=== PATIENT | female | born 1985 | race Caucasian/White ===

== ENCOUNTER → 2019-02-01 07:04 | Outpatient (CLI) | payer OTHER, SELFPAY ==
[2019-02-01 08:49] LABS: Glucose Fasting 80 mg/dL (70-100)
[2019-02-01 09:20] LABS: Ferritin 9.3 ng/mL (6.27-137)
[2019-02-01 09:35] LABS: Glucose 1 Hour 96 mg/dL (70-170)
[2019-02-01 09:40] LABS: Glucose Tol Interpretation INTERPRETATION
[2019-02-01 10:19] LABS: Glucose 2 Hour 98 mg/dL (70-140)
[2019-02-01 17:58] LABS: Mean Corpuscular HGB Conc 34.7 % (30-36); Mean Corpuscular Hemoglobin 33.6 PG (26-34); Mean Corpuscular Volume 96.9 fL (80-100); Platelet Count 173 X10^3/uL (150-400); Red Blood Cell Count 3.96 X10^6/uL (4.0-5.2); Red Cell Distribution Width 12.8 % (11.6-14.8); White Blood Cell Count 8.1 X10^3/uL (4.5-11.0)
[2019-02-01 18:05] LABS: Hematocrit 37.9 % (36-46); Hemoglobin 13.4 g/dL (12.0-16.0)
== END ==
PROVIDERS: Visit Provider Nurse Practitioner Obstetrics & Gynecology
DX: Z34.82 Encounter for supervision of other normal pregnancy, second trimester (principal); Z13.1 Encounter for screening for diabetes mellitus
CPT/HCPCS: 36415; 82728; 82951; 82952; 85027

== ENCOUNTER → 2019-04-12 13:02 | Outpatient (ROUT) | payer OTHER, SELFPAY | PROVIDERS: Visit Provider Nurse Practitioner Obstetrics & Gynecology | DX: Z11.2 Encounter for screening for other bacterial diseases (principal); Z3A.36 36 weeks gestation of pregnancy | CPT/HCPCS: 87081 ==

== ENCOUNTER 2019-05-15 07:25 | Inpatient (IN) | payer OTHER, SELFPAY ==
--- NOTE | 2019-05-15 07:33 | PM.OBHP.1 ---
OB HPI Date/Time Date of admission: 05/15/19 Date Patient Seen: 05/15/19 Time Patient Seen: 07:50 History of Present Condition Chief complaint: OBS : 3 Para: 1 Estimated Date of Delivery: 05/06/19 Estimated Gestational Age (weeks): 41.2 Narrative: Silvana Carroll is a 33 year old female @ 41wks 2 days here for evaluation of labor. Awoke w/ contractions @ 0400 that have progressed in frequency and intensity, now breathing through stong contractions [id number]. +FM. No VB or LOF. Routine, uncomplicated PN care w/ CNM. Desires low intervention . , [place], and process maintenance technicianWilliam, are present and supportive. Comments: Had routine post dates testing 05/13/19 @ 41 wks w/ RNST and DEXTER-7.72cm, vertex. History of Present care: good care Dating criteria: LMP confirmed by 1st trimester US Ultrasounds: normal mid trimester US Obstetrical complications: none Medical complications: none Preadmission Labs Blood type: B (+) positive -: Antibody screen: negative, GBS status: negative, HBsAG: negative, HIV: negative and RPR/VDLR: negative -: Rubella: immune HCT: 37.9 HCAB: negative PAP: Normal Cell-free DNA: negative/female 1 hr GTT: 96 3 hr GTT: 2 hr (98) Fasting blood glucose: 80 Prior (ies) History: 07/25/16- term NSVB @ 41.3, female 8#7oz, 12 hour second stage w/ tranfer to [place], epidural, 2nd degree Evaluation Evaluation Baseline heart rate: 130 Variability: Moderate (11-25) monitor accelerations: Present monitor decelerations: Absent Contraction Frequency (minutes): 4 Uterine Contraction Intensity: Strong/Firm Category of Tracing: I Cervical dilation (cm): 4 Cervical effacement (%): 90 station: -3 [facility] Social History (Updated 05/15/19 @ 08:28 by Dimple Del Angel CNM) marital status: number of children: 1 household members: spouse and children lives independently: Yes caregiver/support person: No housing: house education level: college occupational status: employed current occupational exposures/hazards: No special melita needs: No Smoking Status: Never smoker second hand exposure: No substance use type: does not use Meds Home Medications and Allergies Home Medications Medication Instructions Recorded Confirmed Type 05/15/19 History Allergies Allergy/AdvReac Type Severity Reaction Status Date / Time No Known Drug Allergies Allergy Verified 05/15/19 08:30 Review of Systems Review of Systems ROS: Yes All systems reviewed with the patient and are negative except as otherwise documented Exam Vital Signs (past 8 hours): BP 129/83, HR78, T99.3F Temporal Chest Chest: normal inspection of the chest Resp Effort & Inspection: normal respiratory effort Auscultation: clear to auscultation bilaterally Cardio Rate: regular rate Rhythm: regular rhythm Heart Sounds: S1 normal and S2 normal Uterus Location (Fundal Height): 39 Presentation: vertex Estimated Weight (lbs): 8 Assessment and Plan Assessment and Plan Assessment and Plan narrative: Admit, routine orders w/ SL IV, CBC & T&S. Labor support PRN. Reassess in 4 hours or sooner, PRN. OB back-up/Mcallister notified of pt admit status and POC. Time Spent with Patient Total time spent with greater than 50% in coordination of care (as documented) at patient's floor/unit and/or counseling patient:: 25 - 35 minutes
[2019-05-15 09:00] LABS: Add Manual Diff / Slide Review NO; Basophils Absolute Auto 0 /uL (0-100); Basophils Percent Auto 0.2 % (0-2); Eosinophils Absolute Auto 100 /uL (0-450); Eosinophils Percent Auto 0.7 % (2-4); Hematocrit 42.7 % (36-46); Hemoglobin 14.7 g/dL (12.0-16.0); Lymphocytes Absolute Auto 1700 /uL (1100-4500); Lymphocytes Percent Auto 12.7 % (25-40); Mean Corpuscular HGB Conc 34.5 % (30-36); Mean Corpuscular Hemoglobin 32.9 PG (26-34); Mean Corpuscular Volume 95.5 fL (80-100); Monocytes Absolute Auto 900 /uL (0-900); Monocytes Percent Auto 6.6 % (3-14); Neutrophils Absolute Auto 10700 /uL (1500-7000); Neutrophils Percent Auto 79.8 % (50-75); Platelet Count 172 X10^3/uL (150-400); Red Blood Cell Count 4.47 X10^6/uL (4.0-5.2); Red Cell Distribution Width 12.8 % (11.6-14.8); White Blood Cell Count 13.4 X10^3/uL (4.5-11.0)
[2019-05-15 11:31] VITALS: BP 108/56
[2019-05-15] MEDS: LACTATED RINGERS 1,000 ML 100 ML IV ×2 (14:15→18:25)
--- NOTE | 2019-05-15 14:48 | PM.OBPNLAB ---
Date/Time Date Patient Seen: 05/15/19 Time Patient Seen: 14:40 Pain Control Pain control: other (Nitrous oxide initiated 20 minutes ago, awaiting epidural. Anesthesia notified. ) Comments: VS: BP 125/81, HR 71, T 36.7C Temporal Pelvic Exam Dilation (cm): 9 Effacement (%): 100 station: 0 Amniotic membrane status: Leaking Comments: SROM, clear fluid @ 1135 Contractions Date/Time contractions began: 0600 Pitocin rate (mU/min): 0 Contraction frequency (min): 4 Contraction duration (min): 60 Contraction pattern: Regular Contraction intensity: Strong/Firm Status status: Category l Heart Rate Baseline: 125 Comments: Intermittent auscultation remains reassuring Assessment and Plan Assessment: active labor Comments: Pt has had a persistent anterior lip of cervix x 3 hours without significant change. She is tired and the AL is beginning to swell. Will begin pitocin augmentation after patient is comfortable w/ epidural.
[2019-05-15] MEDS: OXYTOCIN PREMIX 30 UNIT/500 ML PLAST..BAG IV (16:43)
[2019-05-15] MEDS: miSOPROStoL 200 MCG TABLET 400 MCG PO (19:10)
--- NOTE | 2019-05-15 19:26 | PM.OBPRVD ---
 Events: Labor Augmentation and Meconium Stained Fluid Labor & Delivery Delivery date: 05/15/19 Cervical ripening method: none Induction method: none Delivery augmentation: pitocin Delivery monitor: external FHT and external uterine Route of delivery: L&D Laceration Description: Perineal - 1st Degree Delivery repair: chromic (3.0) Estimated blood loss (mL): 600 Anesthesia type: Epidural Narrative: Pitocin augmentation was started after adequate pain management was achieved. After 2 hours of pitocin augmentation, the patient was examined and found to be C/C/+1 w/ meconium stained amniotic fluid noted. Pt pushed well in left side lying position w/ coaching and encouragement and RT was called to standby. Cat II FHTs for variable decelerations. NSVB of a vigorous baby girl in OA position w/ no nuchal cord and easy delivery of the shoulders. [place] was placed on maternal abdomen for drying and skin to skin. Apgars 8/9 and RT left the room. Remaining 30 units of pitocin in 500mL LR was started at 350mL/hr for AMTSL. After cessation of pulsation, the cord was double clamped and cut. Hospital cord blood hold sample was collected. Gentle cord traction led to spontaneous, Schultze delivery of an apparently intact placenta, membranes and 3VC. Fundus was massaged firm. Inspection revealed a 1st degree perineal laceration w/ a superficial vessel bleeding steadily. Hemostasis and good approximation was achieved w/ 3.0 chromic in the usual fashion. Misoprostil 400mcg SL was given. QBL 600mL. Both mother and baby stable and skin to skin as I left the room. [place] Baby 1: Infant gender: Female Presentation: vertex position: Right Occiput Anterior Placenta delivery description: Spontaneous cord vessel description: 3 Vessels score (1 min): 8 score (5 min): 9 Plan for aftercare: Routine PP orders. Anticipate d/c to home in 18-24 hours.
[2019-05-15] MEDS: KETOROLAC 30 MG/ML VIAL IV (21:01)
[2019-05-15] MEDS: DERMOPLAST SPRAY 20% 60 ML 1 SPRAY TOP (21:01)
[2019-05-15] MEDS: LANOLIN OINT 7 GM 1 APPLIC TOP (21:02)
[2019-05-16] MEDS: IBUPROFEN 600 MG TABLET PO ×2 (04:23→10:41)
[2019-05-16] MEDS: DOCUSATE 100 MG CAPSULE PO (08:51)
[2019-05-16] MEDS: ACETAMINOPHEN 325 MG TABLET 650 MG PO ×2 (08:52→14:18)
[2019-05-16] MEDS: PRENATAL VIT,CALC/IRON/FOLIC 1 TABLET 1 TAB PO (08:52)
--- NOTE | 2019-05-16 12:37 | PM.OBDS.1 ---
Discharge Providers Provider Date of admission: 05/15/19 07:25 Discharge Date: 05/16/19 Consults: 05/16/19 19:23 Consult to [employer] Member Routine Comment: Discharge provider: Dimple Del Angel CNM Summary Hospital Course Date Patient Seen: 05/16/19 Time Patient Seen: 12:15 Procedures: 33YO @ 16 hours PP sitting up in bed, nursing her daughter, eager for d/c to home. Voiding and ambulating independently. Tolerating general diet. Confidently . bleeding has decreased, no clots. and family present and supportive. Peripartum Data Delivery Method: Natural Vaginal Laceration description: Perineal - 1st Degree complications: none [place] 1: Gender: Female Disposition of : home Status at Discharge Cognitive/behavioral status at discharge: oriented Functional status at discharge: independent ambulation Overall status at discharge: patient is progressing back to baseline Time Spent with Patient Time attestation: Total time spent providing and/or coordinating discharge services: Time spent: Less than 30 minutes Objective Labs Result Diagrams: 05/15/19 08:40 Exam Vital Signs (past 8 hours): BP 100/67, HR78, RR16, T98.4F Temporal Chest Chest: normal inspection of the chest Breast inspection: normal inspection of the breasts Resp Effort & Inspection: normal respiratory effort Other: Fundus firm at U-2, significant vulvar edema, perineum well approximated. Lochia light to moderate. Psych Appearance: grossly normal and well kempt Speech and Movement: speech and movement normal Affect: normal affect Discharge Plan Discharge Plan Patient Disposition: Home Discharge orders & Medications Prescriptions: New docusate sodium [DOK] 100 mg Capsule 100 mg PO BID Qty: 28 RF: 0 ibuprofen 600 mg Tablet 600 mg PO Q6HR PRN (Reason: Pain, Mild (1-3)) Qty: 60 RF: 2 [id number] Cream 1 applic topical PRN PRN (Reason: Tenderness) 365 Days Qty: 60 RF: 0 acetaminophen 325 mg Tablet 650 mg PO Q6HR PRN (Reason: Pain, Mild (1-3)) 14 Days Qty: 60 RF: 2 Continued 1 tablet RF: 0 Follow up/Referrals: Dimple Del Angel CNM [Advanced Resource Coordinator] - (Follow up in 2 weeks and 6 weeks . Patient to schedule appointments online. ) Diet/Activity/Treatments Diet: Diet as Tolerated and Regular Activity: 6 weeks of pelvic rest. Slowly increase activity as tolerated Skin/Wound/Dressing Care Report to your healthcare provider any signs of infection, such as:: chills, fever, increased pain, unusual drainage and unusual redness Visit Report/Discharge Packet Instructions: DI for Depression
[2019-05-16 13:58] VITALS: BP 100/79; PULSE 78; RESP 16; TEMP 37.2
== END 2019-05-16 15:10 | disposition home or self-care (01) | DRG 807 ==
PROVIDERS: Admitting Provider Nurse Practitioner Obstetrics & Gynecology; Referring Provider Nurse Practitioner Obstetrics & Gynecology; Visit Provider Nurse Practitioner Obstetrics & Gynecology
DX: O48.0 Post-term pregnancy (principal); Z37.0 Single live birth; Z3A.41 41 weeks gestation of pregnancy; O70.0 First degree perineal laceration during delivery; O77.0 Labor and delivery complicated by meconium in amniotic fluid
CPT/HCPCS: 01967; 59050; 85025; 86850; 86900; 86901; G0379; J1885; J2590; S0191